=== PATIENT | male | born 1940 | race Caucasian/White ===

== ENCOUNTER → 2020-04-03 | Outpatient (CLI) | payer OTHER ==
--- NOTE | 2020-04-03 14:29 | 2DMMODE ---
[facility] [place] [address] 2 D/M-MODE ECHOCARDIOGRAM Name: KAITLYNN SUAREZ Room #: GOLDEN HuffmanJuan#: [id number] Admission: 04/03/20 Attend Phys: Tony Aponte MD Discharge: Date of : 44 Report #: [id number] THIS REPORT FOR: cc: Chencho Linn MD, Martin J. MD Lammoglia, Francisco J. MD ~ APPROVED REPORT Study performed: 04/03/2020 11:24:03 EXAM: Comprehensive 2D, Doppler, and color-flow Echocardiogram Patient Location: Out-Patient Room #: Echo lab 2 Status: routine BSA: 1.93 HR: 75 bpm BP: 128/82 mmHg Rhythm: Pacemaker Other Information Study Quality: Good Indications Pacemaker Cardiomyopathy Hypertension/HDD 2D Dimensions IVSd: 11.23 (7-11mm) LVOT Diam: 20.82 (18-24mm) LVDd: 46.55 mm PWd: 11.07 (7-11mm) Ascending Ao: 33.10 (22-36mm) LVDs: 36.30 (25-40mm) Aortic Root: 34.53 mm IVC: 18.00 mm Volumes Left Atrial Volume (Systole) Single Plane 4CH: 39.16 mL Single Plane 2CH: 70.81 mL LA ESV Index: 31.00 mL/m2 Aortic Valve AoV Peak Frankie.: 1.09 m/s AO Peak Gr.: 4.75 mmHg LVOT Max P.50 mmHg LVOT Max V: 0.79 m/s [facility] [address] [address] 2 D/M-MODE ECHOCARDIOGRAM Name: ERICKKAITLYNN Room #: REG [facility]#: [id number] Admission: 04/03/20 Attend Phys: Tony Aponte MD Discharge: Date of : 44 Report #: [id number] DANIEL Vmax: 2.47 cm2 Mitral Valve E/A Ratio: 0.7 MV Decel. Time: 242.39 ms MV E Max Frankie.: 0.62 m/s MV A Frankie.: 0.87 m/s MV PHT: 70.29 ms IVRT: 133.79 ms Pulmonary Valve PV Peak Frankie.: 0.92 m/s PV Peak Gr.: 3.51 mmHg Pulmonary Vein P Vein S: 0.55 m/s P Vein A: 0.23 m/s P Vein D: 0.29 m/s P Vein A Dur.: 110.7 msec P Vein S/D Ratio: 1.90 Tricuspid Valve TR Peak Frankie.: 2.54 m/s TR Peak Gr.: 25.88 mmHg PA Pressure: 30.00 mmHg Left Ventricle The left ventricle is normal size. There is global hypokinesis of the left ventricle with more prominent hypokinesis of the septum. There is normal left ventricular wall thickness. Left ventricular systolic function is mild to moderately decreased. LVEF is 40%. Grade I - abnormal relaxation pattern. Right Ventricle The right ventricle is normal size. The right ventricular systolic function is normal. Pacemaker lead is present in the right ventricle. Atria The left atrium size is normal. The right atrium size is normal. Pacemaker lead is present in the right atrium. Aortic Valve The aortic valve is normal in structure. No aortic regurgitation is present. There is no aortic valvular stenosis. Mitral Valve The mitral valve is normal in structure. Mild mitral regurgitation. No evidence of mitral valve stenosis. [facility] [address] [place] [address] 2 D/M-MODE ECHOCARDIOGRAM Name: KAITLYNN SUAREZ Room #: REG CL [employer]#: [id number] Admission: 04/03/20 Attend Phys: Tony Aponte MD Discharge: Date of : 44 Report #: [id number] Tricuspid Valve The tricuspid valve is normal in structure. There is mild tricuspid regurgitation. Estimated PAP 30 mmHg. There is no pulmonary hypertension. Pulmonic Valve The pulmonary valve is normal in structure. There is no pulmonic valvular regurgitation. Great Vessels The aortic root is normal in size. IVC is normal in size and collapses >50% with inspiration. Pericardium There is no pericardial effusion. <Conclusion> The left ventricle is normal size. Left ventricular systolic function is mild to moderately decreased. LVEF is 40%. There is global hypokinesis of the left ventricle with more prominent hypokinesis of the septum. Pacemaker lead is present in the right ventricle. The right atrium size is normal. Pacemaker lead is present in the right atrium. The aortic valve is normal in structure. The mitral valve is normal in structure. Mild mitral regurgitation. The tricuspid valve is normal in structure. There is mild tricuspid regurgitation. Estimated PAP 30 mmHg. There is no pulmonary hypertension. The pulmonary valve is normal in structure. There is no pericardial effusion. <ELECTRONICALLY SIGNED> By: Eladio Whitley MD 04/03/20 1428 1428 1428 Eladio Whitley MD /INF
== END ==
LOC: CV 11:22
PROVIDERS: ATTEND Orthopaedic Surgery
DX: I08.1 Rheumatic disorders of both mitral and tricuspid valves (principal); I25.9 Chronic ischemic heart disease, unspecified